=== PATIENT | male | born 1990 | race Caucasian/White ===

== ENCOUNTER 2019-12-20 20:00 | Emergency (ER) | payer OTHER ==
--- NOTE | 2019-12-20 20:45 | PDOC ---
Rapid Medical Evaluation Time Seen by Provider: 12/20/19 20:42 Medical Evaluation: 12/20/19 20:42 Pt presents for fever since Thursday. States Tmax was 105F. Admits to leg pain, fever, and cough. Exam: NAD, afebrile, lungs CTAB Orders: nothing Pt to proceed to the ER for further evaluation Discharge Disposition - Diagnosis Fever - Referrals - Patient Instructions - Post Discharge Activity
[2019-12-20 20:49] VITALS: BP 124/78; PULSE 104; TEMP 98.9; BMI 29.2
--- NOTE | 2019-12-20 21:19 | PDOC ---
History of Present Illness - General Chief Complaint: Cold Symptoms Stated Complaint: FEVER Time Seen by Provider: 12/20/19 20:42 - History of Present Illness Initial Comments: 12/20/19 21:17 29-year-old male with flulike symptoms x5 days. He has no comorbidities Past History - Past Medical History Allergies/Adverse Reactions: Allergies Allergy/AdvReac Type Severity Reaction Status Date / Time No Known Allergies Allergy Verified 12/20/19 20:49 COPD: No - Psycho Social/Smoking Cessation Hx Smoking History: Never smoked Hx Alcohol Use: Yes (socially) Drug/Substance Use Hx: No Review of Systems - Review of Systems Constitutional: Yes: Fever HEENTM: Yes: Nose Congestion Respiratory: Yes: Cough *Physical Exam - Vital Signs Last Vital Signs Temp Pulse Resp BP Pulse Ox 98.9 F 104 H 20 124/78 99 12/20/19 20:42 12/20/19 20:42 12/20/19 20:42 12/20/19 20:42 12/20/19 20:42 - Physical Exam 12/20/19 21:17 GENERAL: The patient is awake, alert, and fully oriented, in no acute distress. HEAD: Normal with no signs of trauma. EYES: sclera anicteric, conjunctiva clear. ENT: Ears normal tympanic membranes normal oropharynx clear uvula midline NECK: Normal range of motion LUNGS: Breath sounds equal, clear to auscultation bilaterally. No wheezes, and no crackles. HEART: S1 and S2 without murmur, rub or gallop. ABDOMEN: Soft, nontender, normoactive bowel sounds. No guarding, no rebound. No masses. EXTREMITIES: Normal range of motion, no edema. No clubbing or cyanosis. No cords, erythema, or tenderness. NEUROLOGICAL: Cranial nerves II through XII grossly intact. PSYCH: Normal mood, normal affect. SKIN: Warm, Dry, normal turgor, no rashes or lesions noted. Medical Decision Making - Medical Decision Making 12/20/19 21:17 Added window for Tamiflu supportive care at this point with Tylenol Motrin and fluids Discharge - Discharge Information Problems reviewed: Yes Clinical Impression/Diagnosis: Fever, Flu-like symptoms Condition: Stable Disposition: HOME - Admission No - Follow up/Referral Referrals: Amina Ribera MD [Staff Physician] - - Patient Discharge Instructions Additional Instructions: Return to the emergency room for worsening symptoms. Follow-up with internal medicine in 2 to 3 days without fail. Tylenol and Motrin as directed for fevers and body aches. Plenty of fluids Pedialyte will help maintain hydration - Post Discharge Activity Work/Back to School Note: Back to Work
== END 2019-12-20 21:28 | disposition home or self-care (01) ==
LOC: JERFT 20:00
DX: J11.1 Influenza due to unidentified influenza virus with other respiratory manifestations (principal)
CPT/HCPCS: 99282-25

== ENCOUNTER 2019-12-31 00:48 | Inpatient (IN) | payer OTHER ==
[2019-12-31 02:00] LABS: BASO % 1.1 % (0-2.0); HEMATOCRIT 47.3 % (35.4-49); HEMOGLOBIN 16.2 GM/dL (11.7-16.9); LYMPH % 25.7 % (8-40); MCH 29.7 pg (25.7-33.7); MCHC 34.3 g/dl (32.0-35.9); MEAN CELL VOLUME 86.7 fl (80-96); MEAN PLT VOLUME 10.3 fl (7.5-11.1); MONO % 20.6 % (3.8-10.2); NEUT % 48.6 % (42.8-82.8); RBC 5.46 M/mm3 (4.00-5.60); RDW 13.2 % (11.9-15.9); WHITE BLOOD COUNT 4.1 K/mm3 (4.0-10.0)
[2019-12-31 02:15] LABS: INR 0.98 (0.83-1.09); PROTHROMBIN TIME (PATIENT) 11.6 SEC (9.7-13.0)
[2019-12-31 02:22] LABS: PLATELET COUNT 6 K/MM3 (134-434)
[2019-12-31 02:28] LABS: ALBUMIN 3.5 g/dl (3.4-5.0); BILIRUBIN,TOTAL 0.7 mg/dL (0.2-1); BLOOD UREA NITROGEN 8.2 mg/dL (7-18); CREATININE 0.8 mg/dL (0.55-1.3); POTASSIUM 5.5 mmol/L (3.5-5.1)
--- NOTE | 2019-12-31 02:32 | PDOC ---
Attending Attestation - Resident Resident Name: Pebbles Hopkins - ED Attending Attestation I have performed the following: I have examined & evaluated the patient, The case was reviewed & discussed with the resident, I agree w/resident's findings & plan - HPI HPI: 12/31/19 02:31 Pt bleeding from the back of his throat. Nasal bleed down the posterior throat. Slow ooze. Pt has been given water; asked to gargle and blood continues to run down posterior throat - Physicial Exam PE: 12/31/19 04:37 Pt has normal exam Pt has purpura and small pinpoint hemorrhages on his skin. Pt has posterior nasal bleed. - Medical Decision Making 01/01/20 04:50 Pt has a platelet count of 6; he will be given FFPs and platelets and he will be admitted
[2019-12-31] MEDS ORDERED: DEXAMETHASONE SOD PHOSPHATE 10 MG/1 ML VIAL IVPUSH ONE (02:37)
[2019-12-31] MEDS ORDERED: DEXAMETHASONE SOD PHOSPHATE 10 MG/1 ML VIAL ONE (02:43)
--- NOTE | 2019-12-31 02:44 | PDOC ---
History of Present Illness - General Chief Complaint: Nasal Bleeding Stated Complaint: EPISTAXIS / LOW PLATELETTS Time Seen by Provider: 12/31/19 01:38 - History of Present Illness Initial Comments: 12/31/19 02:43 29 y/o male with a PMHx of ITP acute onset of B/L nasal bleeding at approximately 9 p.m. yesterday evening. Attempted to apply pressure but did not stop the bleeding prompting patient's visit to the ED. Reports h/o ITP which was discovered incidentally @ age 19 when patient had sinus surgery. Around that time patient required a platelet transfusion and prednisone. 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 The patient denies chest pain, shortness of breath, nausea/vomiting, diarrhea/ constipation, dysuria/hematuria. Allergy: Penicillin - patient reports he took amoxicillin w/o any adverse reaction Past History - Past Medical History Allergies/Adverse Reactions: Allergies Allergy/AdvReac Type Severity Reaction Status Date / Time No Known Allergies Allergy Verified 12/31/19 00:53 Home Medications: Ambulatory Orders NK [No Known Home Medication] 12/31/19 COPD: No - Psycho Social/Smoking Cessation Hx Smoking History: Never smoked Have you smoked in the past 12 months: No Information on smoking cessation initiated: No Hx Alcohol Use: No Drug/Substance Use Hx: No Review of Systems - Review of Systems Constitutional: No: Chills, Fever HEENTM: No: Blurred Vision, Throat Pain Respiratory: No: Cough, Shortness of Breath, Wheezing Cardiac (ROS): No: Chest Pain, Lightheadedness, Palpitations, Syncope ABD/GI: No: Constipated, Diarrhea, Nausea, Vomiting : No: Burning, Dysuria *Physical Exam - Vital Signs Last Vital Signs Temp Pulse Resp BP Pulse Ox 98.0 F 90 20 120/81 98 12/31/19 00:53 12/31/19 00:53 12/31/19 00:53 12/31/19 00:53 12/31/19 00:53 - Physical Exam 12/31/19 03:55 Triage VS reviewed Awake, alert, speaking in full sentences, NAD HEENT: BRB in posterior pharynx, no nasal hematoma CV: S1, S2, RRR Respiratory: CLTA B/L Neuro: A&O x3, CN II-XII intact ED Treatment Course - LABORATORY CBC & Chemistry Diagram: 12/31/19 01:53 12/31/19 01:53 - ADDITIONAL ORDERS Additional order review: Laboratory Results 12/31/19 12/31/19 01:53 01:53 PT with INR 11.60 INR 0.98 Sodium 140 Potassium 5.5 H Chloride 105 Carbon Dioxide 32 Anion Gap 4 L BUN 8.2 Creatinine 0.8 Est GFR (CKD-EPI)AfAm 139.91 Est GFR (CKD-EPI)NonAf 120.72 Random Glucose 111 H Calcium 9.0 Total Bilirubin 0.7 AST 54 H ALT 92 H Alkaline Phosphatase 131 H Total Protein 7.0 Albumin 3.5 12/31/19 01:53 RBC 5.46 MCV 86.7 MCHC 34.3 RDW 13.2 MPV 10.3 Neutrophils % 48.6 Lymphocytes % 25.7 Monocytes % 20.6 H Eosinophils % 4.0 Basophils % 1.1 Medical Decision Making - Medical Decision Making 12/31/19 02:43 29 y/o male with acute onset of nasal bleed initially no active bleed @ presentation but blood in posterior pharnyx VS unremarkable As patient began having active epistaxis, placed rhino rocket in R nares with symptomatic improvement Will check Hb and platelets; T&S 12/31/19 03:15 Platelets @ 6K Will consent and transfuse platelets Case d/w Dr. Vickers - admit to Med/Surg 12/31/19 03:28 Patient counseled on benefits/risks of platelet transfusion, consents to transfusion Clinical Impression: Thrombocytopenia 2/2 to ITP Discharge - Discharge Information Problems reviewed: Yes Clinical Impression/Diagnosis: Thrombocytopenia Condition: Fair - Admission Yes - Follow up/Referral - Patient Discharge Instructions - Post Discharge Activity
--- NOTE | 2019-12-31 04:46 | HP ---
CHIEF COMPLAINT:Nosebleed, dizziness PCP: Verena HISTORY OF PRESENT ILLNESS: 29-year-old male with ITP presenting with sudden onset of nosebleed which started last evening. Associated with some mild dizziness. Patient denies bleeding in other body sites but does report some red dots on his extremities. [facility] He reports that he needed platelet transfusion once when he was having surgery on his sinuses. Required multiple short regimens of prednisone previously. Currently is not taking any medications. ER course was notable for: (1) dexamethasone (2) cxr (3) Recent Travel:none PAST MEDICAL HISTORY: ITP PAST SURGICAL HISTORY: sinus surgery Social History: Smoking: no Alcohol: occasional Drugs: no Allergies No Known Allergies Allergy (Verified 12/31/19 00:53) HOME MEDICATIONS: Home Medications Medication Instructions Recorded NK [No Known Home Medication] 12/31/19 REVIEW OF SYSTEMS CONSTITUTIONAL: Absent: fever, chills, diaphoresis, generalized weakness, malaise, loss of appetite, weight change Presentdizziness HEENT: Absent: rhinorrhea, nasal congestion, throat pain, throat swelling, difficulty swallowing, mouth swelling, ear pain, eye pain, visual changes present- epistaxis CARDIOVASCULAR: Absent: chest pain, syncope, palpitations, irregular heart rate, lightheadedness , peripheral edema RESPIRATORY: Absent: cough, shortness of breath, dyspnea with exertion, orthopnea, wheezing, stridor, hemoptysis GASTROINTESTINAL: Absent: abdominal pain, abdominal distension, nausea, vomiting, diarrhea, constipation, melena, hematochezia GENITOURINARY: Absent: dysuria, frequency, urgency, hesitancy, hematuria, flank pain, genital pain MUSCULOSKELETAL: Absent: myalgia, arthralgia, joint swelling, back pain, neck pain SKIN: Absent: rash, itching, pallor HEMATOLOGIC/IMMUNOLOGIC: Absent: easy bruising, lymphadenopathy, frequent infections present- easy bleeding, ENDOCRINE: Absent: unexplained weight gain, unexplained weight loss, heat intolerance, cold intolerance NEUROLOGIC: Absent: headache, focal weakness or paresthesias, unsteady gait, seizure, mental status changes, bladder or bowel incontinence PSYCHIATRIC: Absent: anxiety, depression, suicidal or homicidal ideation, hallucinations. PHYSICAL EXAMINATION Vital Signs - 24 hr 12/31/19 12/31/19 12/31/19 00:53 03:37 04:00 Temperature 98.0 F 98.1 F 98.0 F Pulse Rate 90 Pulse Rate [ Left Radial] Respiratory 20 20 Rate Blood Pressure 120/81 Blood Pressure 124/90 [Left Arm] O2 Sat by Pulse 98 Oximetry (%) 12/31/19 04:15 Temperature 98.1 F Pulse Rate Pulse Rate [ 85 Left Radial] Respiratory 20 Rate Blood Pressure Blood Pressure 134/76 [Left Arm] O2 Sat by Pulse 99 Oximetry (%) GENERAL: Awake, alert, and fully oriented, in no acute distress. HEAD: Normal with no signs of trauma. EYES: Pupils equal, round and reactive to light, extraocular movements intact, sclera anicteric, conjunctiva clear. No lid lag. EARS, NOSE, THROAT:Right nares is packed NECK: Normal range of motion, supple without lymphadenopathy, JVD, or masses. LUNGS: Breath sounds equal, clear to auscultation bilaterally. No wheezes, and no crackles. No accessory muscle use. HEART: Regular rate and rhythm, normal S1 and S2 without murmur, rub or gallop. ABDOMEN: Soft, nontender, not distended, normoactive bowel sounds, no guarding, no rebound, no masses. MUSCULOSKELETAL: Normal range of motion at all joints. No bony deformities or tenderness. No CVA tenderness. UPPER EXTREMITIES: 2+ pulses, warm, well-perfused. No cyanosis. No clubbing. No peripheral edema. LOWER EXTREMITIES: 2+ pulses, warm, well-perfused. No calf tenderness. No peripheral edema. NEUROLOGICAL: Cranial nerves II-XII intact. Normal speech. Normal gait. PSYCHIATRIC: Cooperative. Good eye contact. Appropriate mood and affect. SKIN: petechiae present on upper and lower extremities Laboratory Results - last 24 hr 12/31/19 12/31/19 12/31/19 01:43 01:53 01:53 WBC 4.1 RBC 5.46 Hgb 16.2 Hct 47.3 MCV 86.7 MCH 29.7 MCHC 34.3 RDW 13.2 Plt Count 6 L* MPV 10.3 Absolute Neuts (auto) 2.0 Neutrophils % 48.6 Lymphocytes % 25.7 Monocytes % 20.6 H Eosinophils % 4.0 Basophils % 1.1 Nucleated RBC % 0 PT with INR INR Sodium 140 Potassium 5.5 H Chloride 105 Carbon Dioxide 32 Anion Gap 4 L BUN 8.2 Creatinine 0.8 Est GFR (CKD-EPI)AfAm 139.91 Est GFR (CKD-EPI)NonAf 120.72 Random Glucose 111 H Calcium 9.0 Total Bilirubin 0.7 AST 54 H ALT 92 H Alkaline Phosphatase 131 H Total Protein 7.0 Albumin 3.5 Blood Type O POSITIVE Antibody Screen Negative 12/31/19 12/31/19 01:53 02:40 WBC RBC Hgb Hct MCV MCH MCHC RDW Plt Count MPV Absolute Neuts (auto) Neutrophils % Lymphocytes % Monocytes % Eosinophils % Basophils % Nucleated RBC % PT with INR 11.60 INR 0.98 Sodium Potassium Chloride Carbon Dioxide Anion Gap BUN Creatinine Est GFR (CKD-EPI)AfAm Est GFR (CKD-EPI)NonAf Random Glucose Calcium Total Bilirubin AST ALT Alkaline Phosphatase Total Protein Albumin Blood Type O POSITIVE Antibody Screen ASSESSMENT/PLAN: 29-year-old male with ITP exacerbation, severe thrombocytopenia-6k with active bleeding and petechiae present on extremities upper and lower, epistaxis. Patient agrees for platelet transfusion. Admit to [facility] Prednisone 60 mg p.o. 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 - New Patient This patient is new to me today: Yes Date on this admission: 12/31/19 - Critical Care Critical Care patient: No
[2019-12-31 04:51] LABS: PLATELET ESTIMATE DECREASED
[2019-12-31] MEDS ORDERED: diphenhydrAMINE HCL 25 MG CAPSULE (FP) PO ONE ×4 (05:14→08:30)
[2019-12-31 05:49] VITALS: BMI 30.8
[2019-12-31] MEDS ORDERED: ACETAMINOPHEN 325 MG TABLET (FP) PO ONE ×2 (07:00→08:30)
[2019-12-31 09:07] LABS: BASO % 0.3 % (0-2.0); EOS % 0.1 % (0-4.5); HEMATOCRIT 47.8 % (35.4-49); HEMOGLOBIN 16.2 GM/dL (11.7-16.9); LYMPH % 9.9 % (8-40); MCH 29.6 pg (25.7-33.7); MCHC 33.8 g/dl (32.0-35.9); MEAN CELL VOLUME 87.5 fl (80-96); MEAN PLT VOLUME 8.5 fl (7.5-11.1); MONO % 1.6 % (3.8-10.2); NEUT % 88.1 % (42.8-82.8); RBC 5.47 M/mm3 (4.00-5.60); RDW 13.2 % (11.9-15.9); WHITE BLOOD COUNT 5.1 K/mm3 (4.0-10.0)
[2019-12-31 09:14] LABS: PH,URINE 8.5 (5.0-8.0); URINE APPEARANCE CLEAR; URINE BILIRUBIN NEGATIVE (NEGATIVE); URINE COLOR YELLOW; URINE GLUCOSE (UA) NEGATIVE (NEGATIVE); URINE KETONE NEGATIVE (NEGATIVE); URINE LEUK ESTERASE NEGATIVE (NEGATIVE); URINE NITRITE NEGATIVE (NEGATIVE); URINE PROTEIN NEGATIVE (NEGATIVE); URINE UROBILINOGEN 0.2 mg/dL (0.2-1.0)
[2019-12-31 09:28] LABS: PLATELET COUNT 12 K/MM3 (134-434)
[2019-12-31 09:29] LABS: BILIRUBIN,DIRECT 0.2 mg/dL (0.0-0.2); BILIRUBIN,TOTAL 0.6 mg/dL (0.2-1); BLOOD UREA NITROGEN 9.7 mg/dL (7-18); CALCIUM 9.2 mg/dL (8.5-10.1); CREATININE 0.9 mg/dL (0.55-1.3); POTASSIUM 4.7 mmol/L (3.5-5.1)
[2019-12-31] MEDS: predniSONE 20 MG TABLET (UD) PO SCH (10:10)
--- NOTE | 2019-12-31 10:33 | EKG ---
Test Reason : Blood Pressure : / mmHG Vent. Rate : 086 BPM Atrial Rate : 086 BPM P-R Int : 144 ms QRS Dur : 084 ms QT Int : 354 ms P-R-T Axes : 059 037 037 degrees QTc Int : 423 ms NORMAL SINUS RHYTHM NORMAL ECG NO PREVIOUS ECGS AVAILABLE Confirmed by NAS HAND MD ([id number]) on 12/31/2019 10:33:17 AM Referred By: Confirmed By:NAS HAND MD
[2019-12-31 11:19] LABS: INR 1.04 (0.83-1.09); PROTHROMBIN TIME (PATIENT) 12.3 SEC (9.7-13.0)
[2019-12-31 11:22] LABS: ACTIVATED PTT 33.1 SECONDS (25.2-36.5)
--- NOTE | 2019-12-31 13:01 | PN ---
Physical Exam: SUBJECTIVE: Patient seen and examined; no further bleeding or stridor. No new issues per nursing. 10 sys ROS done and negative aside from HPI OBJECTIVE: Vital Signs Period Temp Pulse Resp BP Sys/Shaikh Pulse Ox Last 24 Hr 97.1 F-98.3 F 72-92 18-20 120-138/65-90 98-100 GENERAL: The patient is awake, alert, and fully oriented, in no acute distress. HEAD: Normal with no signs of trauma. EYES: PERRL, extraocular movements intact, sclera anicteric, conjunctiva clear. No ptosis. ENT: Ears normal, nares patent, oropharynx clear without exudates, moist mucous membranes. NECK: Trachea midline, full range of motion, supple. LUNGS: Breath sounds equal, clear to auscultation bilaterally, no wheezes, no crackles, no accessory muscle use. HEART: Regular rate and rhythm, S1, S2 without murmur, rub or gallop. ABDOMEN: Soft, nontender, nondistended, normoactive bowel sounds, no guarding, no rebound, no hepatosplenomegaly, no masses. EXTREMITIES: 2+ pulses, warm, well-perfused, no edema. NEUROLOGICAL: Cranial nerves II through XII grossly intact. Normal speech, gait not observed. PSYCH: Normal mood, normal affect. SKIN: Warm, dry, normal turgor, no rashes or lesions noted Laboratory Results - last 24 hr 12/31/19 12/31/19 12/31/19 01:43 01:53 01:53 WBC 4.1 RBC 5.46 Hgb 16.2 Hct 47.3 MCV 86.7 MCH 29.7 MCHC 34.3 RDW 13.2 Plt Count 6 L* MPV 10.3 Absolute Neuts (auto) 2.0 Total Counted 100 Neutrophils % 48.6 Neutrophils % (Manual) 55.0 Lymphocytes % 25.7 Lymphocytes % (Manual) 27.0 Monocytes % 20.6 H Monocytes % (Manual) 18 H* Eosinophils % 4.0 Basophils % 1.1 Nucleated RBC % 0 Platelet Estimate Decreased Platelet Comment No clumping noted PT with INR INR PTT (Actin FS) Fibrinogen Sodium 140 Potassium 5.5 H Chloride 105 Carbon Dioxide 32 Anion Gap 4 L BUN 8.2 Creatinine 0.8 Est GFR (CKD-EPI)AfAm 139.91 Est GFR (CKD-EPI)NonAf 120.72 Random Glucose 111 H Calcium 9.0 Total Bilirubin 0.7 Direct Bilirubin AST 54 H ALT 92 H Alkaline Phosphatase 131 H LD Total Total Protein 7.0 Albumin 3.5 Urine Color Urine Appearance Urine pH Ur Specific [place] Urine Protein Urine Glucose (UA) Urine Ketones Urine Blood Urine Nitrite Urine Bilirubin Urine Urobilinogen Ur Leukocyte Esterase Blood Type O POSITIVE Antibody Screen Negative 12/31/19 12/31/19 12/31/19 01:53 02:40 07:09 WBC RBC Hgb Hct MCV MCH MCHC RDW Plt Count MPV Absolute Neuts (auto) Total Counted Neutrophils % Neutrophils % (Manual) Lymphocytes % Lymphocytes % (Manual) Monocytes % Monocytes % (Manual) Eosinophils % Basophils % Nucleated RBC % Platelet Estimate Platelet Comment PT with INR 11.60 INR 0.98 PTT (Actin FS) Fibrinogen Sodium Potassium Chloride Carbon Dioxide Anion Gap BUN Creatinine Est GFR (CKD-EPI)AfAm Est GFR (CKD-EPI)NonAf Random Glucose Calcium Total Bilirubin Direct Bilirubin AST ALT Alkaline Phosphatase LD Total Total Protein Albumin Urine Color Yellow Urine Appearance Clear Urine pH 8.5 H Ur Specific [place] 1.003 L Urine Protein Negative Urine Glucose (UA) Negative Urine Ketones Negative Urine Blood Negative Urine Nitrite Negative Urine Bilirubin Negative Urine Urobilinogen 0.2 Ur Leukocyte Esterase Negative Blood Type O POSITIVE Antibody Screen 12/31/19 12/31/19 12/31/19 08:15 08:15 08:15 WBC 5.1 RBC 5.47 Hgb 16.2 Hct 47.8 MCV 87.5 MCH 29.6 MCHC 33.8 RDW 13.2 Plt Count 12 L* D MPV 8.5 D Absolute Neuts (auto) 4.5 Total Counted Neutrophils % 88.1 H D Neutrophils % (Manual) Lymphocytes % 9.9 D Lymphocytes % (Manual) Monocytes % 1.6 L D Monocytes % (Manual) Eosinophils % 0.1 D Basophils % 0.3 Nucleated RBC % 0 Platelet Estimate Platelet Comment PT with INR INR PTT (Actin FS) Fibrinogen Sodium 137 Potassium 4.7 Chloride 106 Carbon Dioxide 25 Anion Gap 6 L BUN 9.7 Creatinine 0.9 Est GFR (CKD-EPI)AfAm 133.30 Est GFR (CKD-EPI)NonAf 115.01 Random Glucose 166 H Calcium 9.2 Total Bilirubin 0.6 Direct Bilirubin 0.2 AST ALT Alkaline Phosphatase LD Total Total Protein Albumin Urine Color Urine Appearance Urine pH Ur Specific [place] Urine Protein Urine Glucose (UA) Urine Ketones Urine Blood Urine Nitrite Urine Bilirubin Urine Urobilinogen Ur Leukocyte Esterase Blood Type Cancelled Antibody Screen Cancelled 12/31/19 12/31/19 12/31/19 08:15 08:15 08:15 WBC RBC Hgb Hct MCV MCH MCHC RDW Plt Count MPV Absolute Neuts (auto) Total Counted Neutrophils % Neutrophils % (Manual) Lymphocytes % Lymphocytes % (Manual) Monocytes % Monocytes % (Manual) Eosinophils % Basophils % Nucleated RBC % Platelet Estimate Platelet Comment PT with INR Cancelled INR Cancelled PTT (Actin FS) Cancelled Fibrinogen Cancelled Sodium Potassium Chloride Carbon Dioxide Anion Gap BUN Creatinine Est GFR (CKD-EPI)AfAm Est GFR (CKD-EPI)NonAf Random Glucose Calcium Total Bilirubin Direct Bilirubin AST ALT Alkaline Phosphatase LD Total 241 Total Protein Albumin Urine Color Urine Appearance Urine pH Ur Specific [place] Urine Protein Urine Glucose (UA) Urine Ketones Urine Blood Urine Nitrite Urine Bilirubin Urine Urobilinogen Ur Leukocyte Esterase Blood Type Antibody Screen 12/31/19 12/31/19 12/31/19 10:10 10:10 10:10 WBC RBC Hgb Hct MCV MCH MCHC RDW Plt Count MPV Absolute Neuts (auto) Total Counted Neutrophils % Neutrophils % (Manual) Lymphocytes % Lymphocytes % (Manual) Monocytes % Monocytes % (Manual) Eosinophils % Basophils % Nucleated RBC % Platelet Estimate Platelet Comment PT with INR 12.30 INR 1.04 PTT (Actin FS) 33.1 Fibrinogen 420.0 Sodium Potassium Chloride Carbon Dioxide Anion Gap BUN Creatinine Est GFR (CKD-EPI)AfAm Est GFR (CKD-EPI)NonAf Random Glucose Calcium Total Bilirubin Direct Bilirubin AST ALT Alkaline Phosphatase LD Total Total Protein Albumin Urine Color Urine Appearance Urine pH Ur Specific [place] Urine Protein Urine Glucose (UA) Urine Ketones Urine Blood Urine Nitrite Urine Bilirubin Urine Urobilinogen Ur Leukocyte Esterase Blood Type O POSITIVE Antibody Screen Negative Active Medications Generic Name Dose Route Start Last Admin Trade Name Freq PRN Reason Stop Dose Admin Prednisone 60 mg 12/31/19 10:00 12/31/19 10:10 Deltasone - PO 60 mg DAILY KAMALJIT Administration ASSESSMENT/PLAN: Patient with hx ITP presents with thrombocytopenia and nosebleed; pending ENT consultation as well as heme onc consultation. Rhino rocket in with no further bleeding or stridor noted. Continue to monitor on med surg. Problems include: -ITP -Nosebleed -Obesity (BMI 30) Full code Visit type - Emergency Visit Emergency Visit: Yes ED Registration Date: 12/31/19 Care time: The patient presented to the Emergency Department on the above date and was hospitalized for further evaluation of their emergent condition. - New Patient This patient is new to me today: No - Critical Care Critical Care patient: No - Discharge Referral Referred to [facility] Med P.C.: No
[2019-12-31] MEDS: diphenhydrAMINE HCL 25 MG CAPSULE (FP) PO SCH (15:25)
[2019-12-31] MEDS: ACETAMINOPHEN 325 MG TABLET (FP) PO SCH (15:25)
[2019-12-31] MEDS: IMMUNE GLOBULIN IVPB SCH (16:00)
[2019-12-31] MEDS: AMOX TR/POT CLAV 875MG/125MG TABLETS (FP) PO SCH (17:01)
--- NOTE | 2019-12-31 18:13 | CONSULT ---
Consult Consult Specialty:: Hematology Referred by:: Dr. Vickers Reason for Consultation:: Thrombocytopenia - History of Present Illness Chief Complaint: Nose bleed History of Present Illness: 29M with hx ITP presented last night with epistaxis and petechiae. Found to have plt count of 6. Hgb 16.2. WBC 4.1. No other bleeding. Reports that he was diagnosed with ITP 10 years ago. At the time had bone marrow bx that he thinks was unremarkable. Has been treated multiple times with just steroids. Used to follow with Dr. Albarado at [facility] but recently transferred care to Dr. Kyaw So, director of casino marketing in [place], [place]. Reports that he was treated a little over a month ago with steroids but last plt count was 25,000 on repeat one month ago. No other PMHx. Denies joint pain, rash. No fam hx of autoimmune disease. - Alcohol/Substance Use Hx Alcohol Use: Yes (occasional) - Smoking History Smoking history: Never smoked Have you smoked in the past 12 months: No Home Medications - Allergies Allergies/Adverse Reactions: Allergies Allergy/AdvReac Type Severity Reaction Status Date / Time No Known Allergies Allergy Verified 12/31/19 00:53 - Home Medications Home Medications: Ambulatory Orders NK [No Known Home Medication] 12/31/19 Review of Systems - Review of Systems Constitutional: reports: No Symptoms Cardiovascular: reports: No Symptoms Respiratory: reports: No Symptoms Gastrointestinal: reports: No Symptoms Hematology/Lymphatic: reports: Easily Bruised Physical Exam Vital Signs: Vital Signs Temperature 98.3 F 12/31/19 09:00 Pulse Rate 90 12/31/19 09:00 Respiratory Rate 20 12/31/19 09:00 Blood Pressure 138/65 12/31/19 09:00 O2 Sat by Pulse Oximetry (%) 98 12/31/19 09:00 Constitutional: Yes: Well Nourished, No Distress, Calm Eyes: Yes: Conjunctiva Clear HENT: Yes: WNL, Other (rhinorocket in place, no oral purpura). No: Pharyngeal Erythema Cardiovascular: Yes: Regular Rate and Rhythm Respiratory: Yes: Regular, CTA Bilaterally Gastrointestinal: Yes: Soft (xx). No: Distention, Hepatomegaly, Splenomegaly, Tenderness Edema: No Integumentary: Yes: Petechiae Labs: CBC, BMP 12/31/19 08:15 12/31/19 08:15 Assessment/Plan 29M with hx ITP with multiple relapses in the past admitted with epistaxis in setting of plt count 6. Received dex 10 mg and 1 u plt so far. Responded to plt count 12. Peripheral smear confirms severe thrombocytopenia, with rare giant plts, no clumps, no schistocytes, no immature cells. - Would give dex 40 mg x 3 days starting tomorrow. - Given bleeding and patient reported suboptimal response to steroids recently, ordered IVIG 1 g/kg x 2 days - Hold plt transfusions unless actively bleeding. - Will need nursing home treatment as outpatient -- rituximab, splenectomy, TPO agonists-- discussed with pt - Would be helpful to obtain records - Monitor daily CBC - Will follow closely
--- NOTE | 2019-12-31 18:47 | CONSULT ---
Consult - text type - Consultation Consultation Note: ENT consult 29 yo man with right epistaxis x 1 day. Controlled with anterior balloon pack earlier today, then admitted. Hx of ITP, with very low platelet count. Recalls had a flu like illness 2 weeks ago, and has a lingering cough and runny nose, and had been blowing his nose. P/WDWN male laying comfortably in bed Balloon pack in right nostril Left nasal cavity is clear OC/OP is clear Imp: controlled right epistaxis Recommend transfer to a hospital with distribution coordinator ENT coverage, in case his bleeding restarts, given that I am not immediately available utilization review nurse at all times. If he is ready for discharge, would continue balloon pack for 3-5 days, with outpatient follow up in the ENT office to remove the packing. Keep on low dose abx to prevent toxic shock.
[2020-01-01] MEDS: AMOX TR/POT CLAV 875MG/125MG TABLETS (FP) PO SCH ×2 (08:20→17:10)
[2020-01-01 08:46] LABS: BASO % 0.3 % (0-2.0); EOS % 0.1 % (0-4.5); HEMATOCRIT 45.3 % (35.4-49); HEMOGLOBIN 15.4 GM/dL (11.7-16.9); LYMPH % 13.8 % (8-40); MCH 29.5 pg (25.7-33.7); MEAN CELL VOLUME 86.8 fl (80-96); MEAN PLT VOLUME 11.2 fl (7.5-11.1); MONO % 12.6 % (3.8-10.2); NEUT % 73.2 % (42.8-82.8); RBC 5.22 M/mm3 (4.00-5.60); RDW 13.4 % (11.9-15.9); WHITE BLOOD COUNT 8.8 K/mm3 (4.0-10.0)
[2020-01-01 08:51] LABS: PLATELET COUNT 12 K/MM3 (134-434)
[2020-01-01 09:04] LABS: INR 1.04 (0.83-1.09); PROTHROMBIN TIME (PATIENT) 12.3 SEC (9.7-13.0)
[2020-01-01] MEDS: predniSONE 20 MG TABLET (UD) PO SCH (09:14)
--- NOTE | 2020-01-01 11:47 | PN ---
Physical Exam: SUBJECTIVE: Patient seen and examined. Ballon pack in nose, no signs of bleeding , no acute events. OBJECTIVE: Vital Signs Period Temp Pulse Resp BP Sys/Shaikh Pulse Ox Last 24 Hr 97.8 F-98.4 F 86-105 18-20 114-145/60-88 98-100 GENERAL: The patient is awake, alert, and fully oriented, in no acute distress. ENT: ballon pack in nostril, blood tinged LUNGS: Breath sounds equal, clear to auscultation bilaterally, no wheezes, no crackles, no accessory muscle use. HEART: Regular rate and rhythm, S1, S2 without murmur, rub or gallop. ABDOMEN: Soft, nontender, nondistended EXTREMITIES: 2+ pulses, warm, well-perfused, no edema. Laboratory Results - last 24 hr 12/31/19 01/01/20 01/01/20 10:10 07:35 07:35 WBC 8.8 RBC 5.22 Hgb 15.4 Hct 45.3 MCV 86.8 MCH 29.5 MCHC 34.0 RDW 13.4 Plt Count 12 L* MPV 11.2 H D Absolute Neuts (auto) 6.5 Neutrophils % 73.2 Lymphocytes % 13.8 D Monocytes % 12.6 H D Eosinophils % 0.1 Basophils % 0.3 Nucleated RBC % 0 PT with INR 12.30 INR 1.04 Hemoglobin A1c % Blood Type O POSITIVE Antibody Screen Negative 01/01/20 07:35 WBC RBC Hgb Hct MCV MCH MCHC RDW Plt Count MPV Absolute Neuts (auto) Neutrophils % Lymphocytes % Monocytes % Eosinophils % Basophils % Nucleated RBC % PT with INR INR Hemoglobin A1c % 5.2 Blood Type Antibody Screen Active Medications Generic Name Dose Route Start Last Admin Trade Name Freq PRN Reason Stop Dose Admin Acetaminophen 650 mg 12/31/19 15:30 12/31/19 15:25 Tylenol - PO 01/01/20 15:31 650 mg DAILY@1530 KAMALJIT Administration Amoxicillin/Clavulanate Potassium 1 tab 12/31/19 17:30 01/01/20 08:20 Augmentin - 875mg Tablet PO 1 tab BID@0800,1730 KAMALJIT Administration Dexamethasone 40 mg 01/02/20 10:00 Decadron - PO 01/04/20 10:01 DAILY KAMALJIT Diphenhydramine HCl 50 mg 12/31/19 15:30 12/31/19 15:25 Benadryl - PO 01/01/20 15:31 50 mg DAILY@1530 KAMALJIT Administration Immune Globulin 100 gm in 1,000 mls @ 166.667 mls/hr 12/31/19 16:00 12/31/19 16:00 Gamunex-C IVPB 01/01/20 21:59 166.667 mls/hr DAILY@1600 KAMALJIT Administration ASSESSMENT/PLAN: 29-year-old male with ITP exacerbation, severe thrombocytopenia-6k with active bleeding and petechiae present on extremities upper and lower, epistaxis. Patient agrees for platelet transfusion. #Thromboytopenia - likely ITP - Demethasone 40 mg p.o. daily - IVIG X 2 days, today is 2nd day - balloon pack 3-5 days to help stop bleeding - Transfused 1 unit of platelets - Monitor closely for signs of bleeding - Hematology consult - Obtain medical records from patient's private overlock elastic attacher during the day - Avoid antiplatelet agents, PLT's 12 - SCDs for DVT prophylaxis - Started augmentin for ppx and checking A1c as hyperglycemia to 160s but likely in setting of steroids. Dispo:can likely dc when no sins of bleeding noted and IVIg treatment finished, will check with Heme. Visit type - Emergency Visit Emergency Visit: Yes ED Registration Date: 12/31/19 Care time: The patient presented to the Emergency Department on the above date and was hospitalized for further evaluation of their emergent condition. - New Patient This patient is new to me today: Yes Date on this admission: 01/01/20 - Critical Care Critical Care patient: No - Discharge Referral Referred to [facility] No ATTENDING PHYSICIAN STATEMENT I saw and evaluated the patient. I reviewed the resident's note and discussed the case with the resident. I agree with the resident's findings and plan as documented. SUBJECTIVE: OBJECTIVE: ASSESSMENT AND PLAN:
[2020-01-01] MEDS: diphenhydrAMINE HCL 25 MG CAPSULE (FP) PO SCH (15:26)
[2020-01-01] MEDS: ACETAMINOPHEN 325 MG TABLET (FP) PO SCH (15:26)
[2020-01-01] MEDS: IMMUNE GLOBULIN IVPB SCH (15:54)
--- NOTE | 2020-01-01 17:48 | PN ---
Progress Note, Physician History of Present Illness: Denies further epistaxis. Still with balloon pack. No other bleeding - Current Medication List Current Medications: Active Medications Amoxicillin/Clavulanate Potassium (Augmentin - 875mg Tablet) 1 tab PO BID@0800, 1730 [facility] Last Admin: 01/01/20 17:10 Dose: 1 tab Dexamethasone (Decadron -) 40 mg PO DAILY [facility] Stop: 01/04/20 10:01 Immune Globulin (Gamunex-C) 100 gm in 1,000 mls @ 166.667 mls/hr IVPB DAILY@ 1600 [facility] Stop: 01/01/20 21:59 Last Admin: 01/01/20 15:54 Dose: 166.667 mls/hr - Objective Vital Signs: Vital Signs Temperature 97.9 F 01/01/20 14:48 Pulse Rate 100 H 01/01/20 14:48 Respiratory Rate 01/01/20 14:48 Blood Pressure 126/67 01/01/20 14:48 O2 Sat by Pulse Oximetry (%) 100 01/01/20 09:00 Constitutional: Yes: No Distress, Calm Eyes: Yes: Conjunctiva Clear Cardiovascular: Yes: Regular Rate and Rhythm Respiratory: Yes: Regular, CTA Bilaterally Gastrointestinal: Yes: Soft. No: Distention, Tenderness Edema: No Labs: CBC, BMP 01/01/20 07:35 12/31/19 08:15 INR, PTT INR 1.04 (0.83-1.09) 01/01/20 07:35 Fibrinogen 420.0 mg/dL (238-498) 12/31/19 10:10 Assessment/Plan 29M with hx ITP with multiple relapses in the past admitted with epistaxis in setting of plt count 6. Received dex 10 mg and 1 u plt so far. Responded to plt count 12. Peripheral smear confirms severe thrombocytopenia, with rare giant plts, no clumps, no schistocytes, no immature cells. - Received IVIG 1 g/kg yesterday and scheduled for second dose today. - Received prednisone 60 mg today instead of dex today, would give dex 40 mg x 3 days starting tomorrow. - Hold plt transfusions unless actively bleeding. - Will need mcc treatment as outpatient -- rituximab, splenectomy, TPO agonists-- discussed with pt - Would be helpful to obtain records - Monitor daily CBC - Will follow closely
[2020-01-02 08:04] LABS: BASO % 0.7 % (0-2.0); EOS % 0.3 % (0-4.5); HEMATOCRIT 43.2 % (35.4-49); HEMOGLOBIN 14.7 GM/dL (11.7-16.9); LYMPH % 24.6 % (8-40); MCH 29.6 pg (25.7-33.7); MCHC 33.9 g/dl (32.0-35.9); MEAN CELL VOLUME 87.3 fl (80-96); MEAN PLT VOLUME 12.2 fl (7.5-11.1); MONO % 12.6 % (3.8-10.2); NEUT % 61.8 % (42.8-82.8); PLATELET COUNT 42 K/MM3 (134-434); RBC 4.95 M/mm3 (4.00-5.60); RDW 13.6 % (11.9-15.9); WHITE BLOOD COUNT 7.6 K/mm3 (4.0-10.0)
[2020-01-02 08:33] LABS: ALBUMIN 2.9 g/dl (3.4-5.0); BILIRUBIN,TOTAL 0.5 mg/dL (0.2-1); CALCIUM 8.7 mg/dL (8.5-10.1); CREATININE 0.9 mg/dL (0.55-1.3); POTASSIUM 3.8 mmol/L (3.5-5.1); TOT PROT 9.3 g/dl (6.4-8.2)
[2020-01-02] MEDS: AMOX TR/POT CLAV 875MG/125MG TABLETS (FP) PO SCH (09:53)
[2020-01-02] MEDS ORDERED: DEXAMETHASONE 4 MG TABLET (FP) PO SCH (10:00)
[2020-01-02 14:57] VITALS: BP 135/81; PULSE 98; TEMP 98.1
--- NOTE | 2020-01-02 19:19 | PN ---
Teaching Attending Note Name of Resident: Christian Carter ATTENDING PHYSICIAN STATEMENT I saw and evaluated the patient. I reviewed the resident's note and discussed the case with the resident. I agree with the resident's findings and plan as documented. SUBJECTIVE: OBJECTIVE: Vital Signs Period Temp Pulse Resp BP Sys/Shaikh Pulse Ox Last 24 Hr 98.1 F-98.2 F 74-98 18-20 104-136/62-85 100 Laboratory Results - last 24 hr 01/02/20 01/02/20 07:25 07:25 WBC 7.6 RBC 4.95 Hgb 14.7 Hct 43.2 MCV 87.3 MCH 29.6 MCHC 33.9 RDW 13.6 Plt Count 42 L D MPV 12.2 H Absolute Neuts (auto) 4.7 Neutrophils % 61.8 Lymphocytes % 24.6 D Monocytes % 12.6 H Eosinophils % 0.3 D Basophils % 0.7 Nucleated RBC % 0 Sodium 137 Potassium 3.8 Chloride 103 Carbon Dioxide 32 Anion Gap 1 L BUN 13.0 Creatinine 0.9 Est GFR (CKD-EPI)AfAm 133.30 Est GFR (CKD-EPI)NonAf 115.01 Random Glucose 98 Calcium 8.7 Total Bilirubin 0.5 AST 10 L ALT 48 Alkaline Phosphatase 87 Total Protein 9.3 H Albumin 2.9 L ASSESSMENT AND PLAN:
--- NOTE | 2020-01-03 06:51 | DS ---
Physical Exam: SUBJECTIVE: Patient seen and examined. No acute events noted. OBJECTIVE: Vital Signs Period Temp Pulse Resp BP Sys/Shaikh Pulse Ox Last 24 Hr 98.1 F 84-98 18-18 135-136/81-85 PHYSICAL EXAM GENERAL: The patient is awake, alert, and fully oriented, in no acute distress. ENT: Nasal balloon packing in place no drainage. LUNGS: Breath sounds equal, clear to auscultation bilaterally, no wheezes, no crackles, no accessory muscle use. HEART: Regular rate and rhythm, S1, S2 without murmur, rub or gallop. ABDOMEN: Soft, nontender, nondistended, normoactive bowel sounds, no guarding, no rebound, no hepatosplenomegaly, no masses. EXTREMITIES: 2+ pulses, warm, well-perfused, no edema. LABS Laboratory Results - last 24 hr 01/02/20 01/02/20 01/02/20 07:25 07:25 07:25 WBC 7.6 RBC 4.95 Hgb 14.7 Hct 43.2 MCV 87.3 MCH 29.6 MCHC 33.9 RDW 13.6 Plt Count 42 L D MPV 12.2 H Absolute Neuts (auto) 4.7 Neutrophils % 61.8 Lymphocytes % 24.6 D Monocytes % 12.6 H Eosinophils % 0.3 D Basophils % 0.7 Nucleated RBC % 0 Sodium 137 Potassium 3.8 Chloride 103 Carbon Dioxide 32 Anion Gap 1 L BUN 13.0 Creatinine 0.9 Est GFR (CKD-EPI)AfAm 133.30 Est GFR (CKD-EPI)NonAf 115.01 Random Glucose 98 Calcium 8.7 Total Bilirubin 0.5 AST 10 L ALT 48 Alkaline Phosphatase 87 Total Protein 9.3 H Albumin 2.9 L Hep C Ab Diagnostic 0.2 HOSPITAL COURSE: Date of Admission:12/31/19 This is a 29-year-old male with ITP exacerbation, severe thrombocytopenia-6k with active bleeding and petechiae present on extremities upper and lower, and epistaxis. Patient was given 1 platelet transfusion and plt's eventually came up to 42. HCV titers negative. He was seen by Dr. Barnhart who placed a nasal balloon pack to stop the epistaxis. He will f/u in ent office within a few days to have it removed. He was seen by Heme onc who started him on IVIG for 2 days and decadron 40mg, and augmentin for toxic shock ppx. Pt was told to follow up with heme onc for further mgmt like rituxin, splenectomy, plasmapheresis etc. Abd Us negative for splenomegaly. Pt told to come to the ER if he had any worsening of his bleeding or petechiae on his body. Date of Discharge: 01/03/20 Minutes to complete discharge: 35 Discharge Summary Problems reviewed: Yes Reason For Visit: THROMBOCYTOPENIA Condition: Improved - Instructions Diet, Activity, Other Instructions: You were admitted for having low platelets. You have been diagnosed with an autoimmune platelet disorder(ITP) in the past. You were given the necessary treatment to ensure you are not bleeding. You were given one platelet transfusion and seen by an nuclear medicine officer (Dr. Barnhart) who placed a tube in your nose to stop the bleeding. You should remove the tube in your nose 3 days after you leave. You should follow up with Dr. Barnhart in 1 week after leaving here. Follow Up You should follow up with Dr. Kyaw So (Blood doctor/Flux Mixer) 1 week after you leave here to help with the management of your ITP. You should follow up with your primary care doctor in 1 week. If you do not have one, you may make an appointment at [facility] [place]. Medications Please START taking Decadron 40 mg by mouth for 2 more days. Your last day will be on Thursday, January 04, 2020. Please START taking Augmentin 875 mg twice a day. Please make an appointment with the ear, nose, and throat (ENT) doctor within 1 week for outpatient evaluation. You will need to continue taking this medication until you see the ENT doctor. You should continue your home medications as prescribed. You should return to the emergency room if you have any worsening of your current symptoms or: chest pain, shortness of breath, headache, signs of bleeding, weakness. Referrals: Kyaw So [Other] - 1 Week Christian Carter RES [Resident] - 1 Week Anhsu Barnhart MD [Staff Physician] - 1 Week Disposition: HOME - Home Medications Comprehensive Discharge Medication List: Ambulatory Orders Amox-Tr/K Cl [Augmentin - 875Mg Tablet] 1 tab PO BID #14 tablet 01/02/20 Dexamethasone [Decadron -] 40 mg PO DAILY 2 Days #20 tablet 01/02/20 This patient is new to me today: No Emergency Visit: Yes ED Registration Date: 12/31/19 Care time: The patient presented to the Emergency Department on the above date and was hospitalized for further evaluation of their emergent condition. Critical Care patient: No - Discharge Referral Referred to [facility] No ATTENDING PHYSICIAN STATEMENT I saw and evaluated the patient. I reviewed the resident's note and discussed the case with the resident. I agree with the resident's findings and plan as documented. SUBJECTIVE: OBJECTIVE: ASSESSMENT AND PLAN:
== END 2020-01-02 15:55 | disposition home or self-care (01) | DRG 813 ==
LOC: JER 00:48 → JERBED 02:46 → J6S 05:05
PROVIDERS: ADMIT Internal Medicine; ATTEND Internal Medicine
PROC: 2Y41X5Z Packing of Nasal Region using Packing Material (ICD-10-PCS; principal; 2019-12-31)
PROC: 30233R1 Transfusion of Nonautologous Platelets into Peripheral Vein, Percutaneous Approach (ICD-10-PCS; 2019-12-31)
DX: D69.3 Immune thrombocytopenic purpura (principal); E66.9 Obesity, unspecified; Z68.30 Body mass index [BMI] 30.0-30.9, adult; R04.0 Epistaxis
CPT/HCPCS: 36415; 36430; 36511; 71045-TC-FY; 76700-TC; 80048; 80053; 81003; 82247; 82248; 83036; 83615; 85025; 85384; 85610; 85730; 86803; 86850; 86900; 86901; 93005; 93010; 99285-25; J1100; J1561; P9034; P9038